=== PATIENT | female | born 1960 | race Caucasian/White ===

== ENCOUNTER 2017-12-06 15:21 | Emergency (ER) | payer BC, OTHER ==
[2017-12-06 17:03] VITALS: BP 149/91
[2017-12-06] MEDS ORDERED: Rabies Immune Globulin 10 ML* 150 UNIT/ML VIAL IM ONE (17:15)
[2017-12-06] MEDS ORDERED: Rabies VIRUS VACCINE (Imovax)* 2.5 UNIT/ML 1 ML IM ONE (17:15)
--- NOTE | 2017-12-06 17:23 | UC ---
General HPI - HPI Summary HPI Summary: 57 year old female presents for rabies prophylactic treatment. She states she has had multiple bats in her house and on November 16 she was getting ready to travel to [place] and discovered a bat in her dresser drawer. No known bite. Spoke to her PCP (Sarah) and [facility] who recommended that she start the rabies prophylactic protocol. - History of Current Complaint Chief Complaint: UCGeneralIllness Stated Complaint: RABIES POST EXPOSURE Time Seen by Provider: 12/06/17 17:06 Hx Obtained From: Patient Pain Intensity: 0 - Allergy/Home Medications Allergies/Adverse Reactions: Allergies Allergy/AdvReac Type Severity Reaction Status Date / Time Sulfa (Sulfonamide Allergy Rash Verified 12/06/17 17:03 Antibiotics) Tetanus Vaccines and Toxoid Allergy Unknown Verified 12/06/17 17:03 Reaction Details Home Medications: Home Medications Aspirin 81 mg CHEW TAB* 162 mg PO DAILY 12/06/17 [History Confirmed 12/06/17] PMH/Surg Hx/FS Hx/Imm Hx - Additional Past Medical History Additional PMH: Denies significant PMH - Surgical History Surgical History: None - Family History Family History: Noncontributory - Social History Occupation: Employed Full-time Lives: With Family Alcohol Use: Occasionally Substance Use Type: None Smoking Status (MU): Never Smoked Tobacco Review of Systems Constitutional: Negative Skin: Negative Respiratory: Negative Cardiovascular: Negative Neurovascular: Negative Musculoskeletal: Negative Is Patient Immunocompromised?: No All Other Systems Reviewed And Are Negative: Yes Physical Exam Triage Information Reviewed: Yes Appearance: Well-Appearing, No Pain Distress, Well-Nourished Vital Signs: Initial Vital Signs Temp 99.1 F 12/06/17 16:58 Pulse 76 12/06/17 16:58 Resp 16 12/06/17 16:58 BP 149/91 12/06/17 16:58 Pulse Ox 98 12/06/17 16:58 Vital Signs Reviewed: Yes Respiratory Exam: Normal Cardiovascular Exam: Normal Musculoskeletal Exam: Normal Neurological: Positive: Alert Skin Exam: Normal Course/Dx - Course Course Of Treatment: 57 year old female presents for rabies exposure prophylaxis per recommendation of [facility]. Her history appears to be a very low risk for exposure however prophylxis treatment provided as per recommendation. - Differential Dx - Multi-Symptom Provider Diagnoses: Rabies exposure Discharge - Sign-Out/Discharge Documenting (check all that apply): Patient Departure All imaging exams completed and their final reports reviewed: No Studies - Discharge Plan Condition: Stable Disposition: HOME Patient Education Materials: Rabies Immune Globulin (By injection), Rabies Vaccine (ED) Referrals: Clary Smith MD [Primary Care Provider] - If Needed Additional Instructions: You will need to receive additional shots of the rabies vaccine on day 3, day 7 , and day 14. In some cases some people require a shot on day 28 as well however based on your history this is unlikely. Please call the [facility] at [phone] to arrange for the remaining shots. It is very important that you complete the full series. Your blood pressure in the clinic today was mildly elevated. It is recommended that you follow up with your primary care provider within the next 4 weeks to have this rechecked. - Billing Disposition and Condition Condition: STABLE Disposition: Home
== END 2017-12-06 18:00 | disposition home or self-care (01) ==
LOC: UCEAST 15:21
DX: Z20.3 Contact with and (suspected) exposure to rabies (principal); Z23 Encounter for immunization; Z88.2 Allergy status to sulfonamides; Z88.7 Allergy status to serum and vaccine
CPT/HCPCS: 90375; 90471; 96372; 99201; G0463